=== PATIENT | female | born 1970 ===

== ENCOUNTER 2025-01-30 03:50 | Emergency (ER) | payer BC ==
[~2025-01-30] VITALS: Ht 172.7 cm; Wt 77.1 kg
[2025-01-30] MEDS ORDERED: FentaNYL Citrate 50 MCG/ML 2 ML Injection IV PRN (04:00)
[2025-01-30] MEDS ORDERED: NS 1,000 ML IV SCH ×2 (04:55→13:35)
[2025-01-30] MEDS ORDERED: Ondansetron HCl 2 MG / ML 2ML Vial IV ONE (04:55)
[2025-01-30] MEDS ORDERED: Midazolam HCl 1MG / ML 2ML Vial IV SCH (04:55)
[2025-01-30] MEDS ORDERED: CeFAZolin Sodium 2,000 MG in NS 100 ML IV ONE (05:10)
[2025-01-30] MEDS ORDERED: HYDROmorphone HCl/Pf 1MG SYR IV ONE ×2 (10:20→11:35)
[2025-01-30] MEDS ORDERED: NS 1,000 ML IV ONE (13:51)
== END 2025-01-30 15:10 | disposition short-term general hospital (02) ==
LOC: ER 03:50
DX: S82.851A Displaced trimalleolar fracture of right lower leg, initial encounter for closed fracture (principal); W01.0XXA Fall on same level from slipping, tripping and stumbling without subsequent striking against object, initial encounter; Z88.0 Allergy status to penicillin; Z88.8 Allergy status to other drugs, medicaments and biological substances
CPT/HCPCS: 73590; 73600; 73700; 82947; 90715; A9270; J0690; J1171; J2250; J2405; J2704; J3010; J7030